=== PATIENT | male | born 1935 | race Caucasian/White ===

== ENCOUNTER 2016-06-18 11:42 | Emergency (ER) | payer MEDICARE, OTHER ==
--- NOTE | 2016-06-18 12:07 | ER Document Report ---
ED Medical Screen (RME) - General Stated Complaint: PAIN IN UMBILICA AREA Mode of Arrival: Wheelchair Information source: Patient Notes: Patient complains of umbilical hernia these no longer able to reduce. Patient states pain radiates around into his abdomen. Patient does report nausea, no vomiting. No fever I have greeted and performed a rapid initial assessment of this patient. A comprehensive ED assessment and evaluation of the patient, analysis of test results and completion of the medical decision making process will be conducted by additional ED providers. TRAVEL OUTSIDE OF THE [place] IN LAST 30 DAYS: No - Related Data Allergies/Adverse Reactions: Sulfa (Sulfonamide Antibiotics) Allergy (Severe, Verified 06/18/16 12:04) flu-like symptoms Past Medical History - Past Medical History Cardiac Medical History: Reports: Hx Coronary Artery Disease, Hx Heart Attack - mild heart attack in past, Hx Hypertension - on meds Pulmonary Medical History: Reports: Hx COPD - inhalers Denies: Hx Asthma, Hx Bronchitis, Hx Pneumonia, Hx Tuberculosis Neurological Medical History: Denies: Hx Cerebrovascular Accident, Hx Seizures Endocrine Medical History: Reports: Hx Hypothyroidism Renal/ Medical History: Reports: Hx Benign Prostatic Hyperplasia GI Medical History: Reports: Hx Gastroesophageal Reflux Disease. Denies: Hx Hepatitis, Hx Hiatal Hernia, Hx Ulcer Musculoskeltal Medical History: Reports Hx Arthritis Psychiatric Medical History: Reports: Hx Depression Infectious Medical History: Denies: Hx Hepatitis Past Surgical History: Reports: Hx Herniorrhaphy. Denies: Hx Open Heart Surgery , Hx Pacemaker - Immunizations Hx Diphtheria, Pertussis, Tetanus Vaccination: Yes Physical Exam - Vital signs Vitals: Temp Pulse Resp BP Pulse Ox 98.3 F 60 14 137/94 H 95 06/18/16 11:47 06/18/16 11:47 06/18/16 11:47 06/18/16 11:47 06/18/16 11:47 - Abdominal Tenderness: Tender - Umbilical hernia Course - Vital Signs Vital signs: Temp Pulse Resp BP Pulse Ox 98.3 F 60 14 137/94 H 95 06/18/16 11:47 06/18/16 11:47 06/18/16 11:47 06/18/16 11:47 06/18/16 11:47
[2016-06-18 12:53] LABS: ABSOLUTE BASOPHILS # (AUTO) 0.1 10^3/uL (0.0-0.2); ABSOLUTE EOSINOPHILS # (AUTO) 0.3 10^3/uL (0.0-0.6); ABSOLUTE LYMPHOCYTES (AUTO) 1.4 10^3/uL (0.5-4.7); ABSOLUTE MONOCYTES (AUTO) 0.8 10^3/uL (0.1-1.4); ABSOLUTE NEUT (AUTO) 7.9 10^3/uL (1.7-8.2); BASOPHILS % (AUTO) 0.7 % (0-2); EOSINOPHILS % (AUTO) 2.8 % (0-6); HEMATOCRIT 37.3 % (37.9-51.0); HEMOGLOBIN 12.5 g/dL (13.5-17.0); HGB HCT DIFFERENCE 0.2; LYMPHOCYTES % (AUTO) 13.2 % (13-45); MEAN CORPUSCULAR HEMOGLOBIN 32.4 pg (27.0-33.4); MEAN CORPUSCULAR HGB CONC 33.4 g/dL (32.0-36.0); MEAN CORPUSCULAR VOLUME 97 fl (80-97); MONOCYTES % (AUTO) 7.7 % (3-13); RED BLOOD COUNT 3.84 10^6/uL (4.35-5.55); SEGMENTED NEUTROPHILS % (AUTO) 75.6 % (42-78); WHITE BLOOD COUNT 10.4 10^3/uL (4.0-10.5)
[2016-06-18 12:58] LABS: APPEARANCE,URINE SLIGHTLY-CLOUDY; BILIRUBIN,URINE NEGATIVE (NEGATIVE); GLUCOSE, URINE NEGATIVE (NEGATIVE); KETONES,URINE NEGATIVE (NEGATIVE); LEUKOCYTE ESTERASE,URINE SMALL (NEGATIVE); NITRITE,URINE NEGATIVE (NEGATIVE); PROTEIN,URINE NEGATIVE (NEGATIVE); URINE SPECIFIC GRAVITY 1.012; UROBILINOGEN,URINE NEGATIVE mg/dL (<2.0)
[2016-06-18 13:15] LABS: ALANINE AMINOTRANSFERASE 24 U/L (21-72); ALBUMIN 3.7 g/dL (3.5-5.0); ALKALINE PHOSPHATASE 75 U/L (38-126); ANION GAP 7 (5-19); ASPARTATE AMINO TRANSFERASE 20 U/L (17-59); BILIRUBIN,TOTAL 0.5 mg/dL (0.2-1.3); BLOOD UREA NITROGEN 31 mg/dL (7-20); CALCIUM 9.9 mg/dL (8.4-10.2); CARBON DIOXIDE 25 mmol/L (22-30); CHLORIDE 99 mmol/L (98-107); CREATININE RESULT 1.98 mg/dL (0.52-1.25); GLUCOSE 107 mg/dL (75-110); LIPASE 121.4 U/L (23-300); POTASSIUM 5.6 mmol/L (3.6-5.0); SODIUM 130.9 mmol/L (137-145); TOTAL PROTEIN 6.9 g/dL (6.3-8.2)
[2016-06-18] MEDS ORDERED: FENTANYL CITRATE INJ/PF 100 MCG/2 ML AMPUL IV ONE (14:11)
[2016-06-18] MEDS ORDERED: ONDANSETRON HCL INJ/PF 4 MG/2 ML SDV IV ONE (14:12)
--- NOTE | 2016-06-18 14:13 | ER Document Report ---
ED General - General Chief Complaint: Abdominal Pain Stated Complaint: PAIN IN UMBILICA AREA Mode of Arrival: Wheelchair TRAVEL OUTSIDE OF THE [place] IN LAST 30 DAYS: No - Related Data Allergies/Adverse Reactions: Sulfa (Sulfonamide Antibiotics) Allergy (Severe, Verified 06/18/16 12:04) flu-like symptoms Home Medications: Current Home Medications Aclidinium [place] [Tudorza Pressair] 1 puff IH Q12 06/18/16 [History] Albuterol Sulfate [Proair HFA] 2 puff IH Q6HP PRN 06/18/16 [History] Colestipol HCl [Colestid 1 gm Tablet] 1 gm PO BID 06/18/16 [History] Esomeprazole Magnesium [Nexium] 40 mg PO DAILY 06/18/16 [History] Fluticasone Propionate [Flonase Nasal [place] 50 Mcg/[place] 16 gm] 2 spray NASL DAILY 06/18/16 [History] Fluticasone/Salmeterol [Advair HFA 115-21 mcg Inhaler] 1 puff IH Q12 06/18/16 [ History] Levothyroxine Sodium [Synthroid 0.112 mg Tablet] 112 mcg PO DAILY 06/18/16 [ History] Lisinopril [Zestril] 10 mg PO DAILY 06/18/16 [History] Lorazepam [Ativan 1 mg Tablet] 1 mg PO Q12HP PRN 06/18/16 [History] Methylcellulose (with Sugar) [Fiber Therapy Powder] 1 dose PO TID 06/18/16 [ History] Metoprolol Succinate [Toprol Xl 50 mg Tab.sr] 50 mg PO DAILY 06/18/16 [History] Tamsulosin HCl [Flomax 0.4 mg Cap.sr] 0.4 mg PO DAILY 06/18/16 [History] Past Medical History - General Information source: Patient - Social History Smoking Status: Never Smoker Family History: Reviewed & Not Pertinent Patient has suicidal ideation: No Patient has homicidal ideation: No - Past Medical History Cardiac Medical History: Reports: Hx Coronary Artery Disease, Hx Heart Attack - mild heart attack in past, Hx Hypertension - on meds Pulmonary Medical History: Reports: Hx COPD - inhalers Denies: Hx Asthma, Hx Bronchitis, Hx Pneumonia, Hx Tuberculosis Neurological Medical History: Denies: Hx Cerebrovascular Accident, Hx Seizures Endocrine Medical History: Reports: Hx Hypothyroidism Renal/ Medical History: Reports: Hx Benign Prostatic Hyperplasia. Denies: Hx Peritoneal Dialysis GI Medical History: Reports: Hx Gastroesophageal Reflux Disease. Denies: Hx Hepatitis, Hx Hiatal Hernia, Hx Ulcer Musculoskeltal Medical History: Reports Hx Arthritis Psychiatric Medical History: Reports: Hx Depression Infectious Medical History: Denies: Hx Hepatitis Past Surgical History: Reports: Hx Herniorrhaphy. Denies: Hx Open Heart Surgery , Hx Pacemaker - Immunizations Hx Diphtheria, Pertussis, Tetanus Vaccination: Yes Hx Pneumococcal Vaccination: 04/28/07 Physical Exam - Vital signs Vitals: Temp Pulse Resp BP Pulse Ox 98.3 F 60 14 137/94 H 95 06/18/16 11:47 06/18/16 11:47 06/18/16 11:47 06/18/16 11:47 06/18/16 11:47 Course - Re-evaluation Re-evalutation: 06/18/16 14:13 I picked up the chart at 1400 immediately assessed patient and call Dr. Paniagua at [address] scan to come to the ED and evaluate the patient IV is started with fentanyl and Zofran. 06/18/16 17:02 Dr. Hidalgo came to see the patient had a long discussion with patient and family and the patient's primary care physician. He is able to reduce the hernia at the bedside but does not know how long that has gone last. According to his discussion with the primary care physician the patient is a poor candidate for surgery and has not been worked up preoperatively. The surgeon had a long detailed conversation about this with the patient and the family member at the bedside right now it is reduced the family doctor says he'll see him in follow- up I recommended one to 2 days. It will ultimately need to be fixed but right now is reducible. Patient is instructed to return to the emergency department immediately for persistent pain vomiting or any other concerns by the above treatment - Vital Signs Vital signs: Temp Pulse Resp BP Pulse Ox 98.3 F 65 14 127/64 H 95 06/18/16 17:14 06/18/16 17:14 06/18/16 11:47 06/18/16 17:14 06/18/16 17:14 - Laboratory Result Diagrams: 06/18/16 12:15 06/18/16 12:15 Laboratory results interpreted by me: 0206/18/16 06/18/16 12:15 12:15 12:15 RBC 3.84 L Hgb 12.5 L Hct 37.3 L Sodium 130.9 L Potassium 5.6 H BUN 31 H Creatinine 1.98 H Est GFR ( Amer) 40 L Est GFR (Non-Af Amer) 33 L Ur Leukocyte Esterase SMALL H Discharge - Discharge Clinical Impression: reducible umbilical hernia Condition: Stable Disposition: HOME, SELF-CARE Instructions: Abdominal Pain ([facility]) Additional Instructions: Hernia You have a hernia. A hernia forms at a weak spot in the abdominal wall. Bowel slips out of the abdominal cavity into the weak spot. Hernias tend to occur in the groin (especially in males), the fold of the thigh, the naval, or at a surgical scar. Surgical repair of the defect is usually necessary. The problem tends to get worse. It's important that you follow up as recommended. For now, you should avoid straining, heavy lifting, and vigorous exercise. Complications occur if the hernia becomes tightly stuck. You should come back immediately if the area becomes increasingly painful, swollen, or discolored, or if you develop abdominal pain and vomiting. Referrals: MAGNUS BARTON MD [Primary Care Provider] - Follow up tomorrow (in 1 to 2 days return for increasing worsening or new symptoms)
[2016-06-18 17:19] VITALS: BP 127/64
--- NOTE | 2016-06-19 09:51 | PDOC CONSULTATION ---
History of Present Illness Admission Date/PCP: MAGNUS DALTON MD History of Present Illness: APRIL VELAZQUEZ is a 81 year old white male, awoke this morning with abdominal pain at 4 AM. Patient reports that these had 2 hernias in his midabdomen, 1 at the umbilicus and one a little above that. The one at the umbilicus was fixed last year, 01/03/2016. He reports at that time he was told he was a very high surgical risk and could not undergo general anesthesia. The repair was done with spinal anesthesia. It was done as a primary repair. The operative note reports that only limited undermining could be done due to patient motion and discomfort. The patient reports the upper hernia sticks out but he can usually reduce it. However this morning, he was unable to reduce it. The pain caused by it was mid abdominal and radiated out to both sides. The pain was severe earlier. Pain is moderate now, but becomes severe when palpated. He denies obstructive symptoms. Has baseline bowel habits include chronic diarrhea and fecal urgency due to irritable bowel syndrome which have not changed recently. He reports some mild confusion and mild memory deficits, chronic diarrhea, chronic shortness of breath, chronic tremor, cough and chronic leg weakness. He denies fevers, chills, nausea, vomiting, constipation, chest pain, seizures, shakes, chills, lightheadedness, dizziness, double vision, rash, jaundice, itching. Past Medical History Cardiac Medical History: Reports: Coronary Artery Disease, Myocardial Infarction - mild heart attack in past, Hyperlipidema, Hypertension - on meds, Other - Aortic stenosis Pulmonary Medical History: Reports: Chronic Obstructive Pulmonary Disease (COPD ) - on 3 inhalers, Other - Emphysema Neurological Medical History: Reports: Other - Peripheral neuropathy, Tremor Endocrine Medical History: Reports: Hypothyroidism Renal/ Medical History: Reports: Chronic Kidney Disease - Stage IV, Other - DPH GI Medical History: Reports: Gastroesophageal Reflux Disease, Other - Diverticulosis, irritable bowel syndrome Musculoskeltal Medical History: Reports: Arthritis, Other - Cervical spondylosis , compression fracture of the lumbar vertebrae Psychiatric Medical History: Reports: Depression Hematology: Reports: Anemia Past Surgical History Past Surgical History: Reports: Herniorrhaphy, Orthopedic Surgery - Right shoulder surgery, Other - TURP, soft tissue mass removed from his back Social History Information Source: Patient Lives with: Alone Smoking Status: Former Smoker Number of Years Smokin Last Time Smoked: 2 years ago Frequency of Alcohol Use: Social Amount of Alcoholic Beverages Per Day: 2-3 Hx Recreational Drug Use: No Hx Prescription Drug Abuse: No Family History Family History: Reviewed & Not Pertinent Parental Family History Reviewed: Yes Children Family History Reviewed: Yes Sibling(s) Family History Reviewed.: Yes Medication/Allergy Home Medications: Aclidinium [place] [Tudorza Pressair] 1 puff IH Q12 06/18/16 Albuterol Sulfate [Proair HFA] 2 puff IH Q6HP PRN 06/18/16 Colestipol HCl [Colestid 1 gm Tablet] 1 gm PO BID 06/18/16 Esomeprazole Magnesium [Nexium] 40 mg PO DAILY 06/18/16 Fluticasone Propionate [Flonase Nasal [place] 50 Mcg/[place] 16 gm] 2 spray NASL DAILY 06/18/16 Fluticasone/Salmeterol [Advair HFA 115-21 mcg Inhaler] 1 puff IH Q12 06/18/16 Levothyroxine Sodium [Synthroid 0.112 mg Tablet] 112 mcg PO DAILY 06/18/16 Lisinopril [Zestril] 10 mg PO DAILY 06/18/16 Lorazepam [Ativan 1 mg Tablet] 1 mg PO Q12HP PRN 06/18/16 Methylcellulose (with Sugar) [Fiber Therapy Powder] 1 dose PO TID 06/18/16 Metoprolol Succinate [Toprol Xl 50 mg Tab.sr] 50 mg PO DAILY 06/18/16 Tamsulosin HCl [Flomax 0.4 mg Cap.sr] 0.4 mg PO DAILY 06/18/16 Allergies/Adverse Reactions: Sulfa (Sulfonamide Antibiotics) Allergy (Severe, Verified 06/18/16 12:04) flu-like symptoms Review of Systems All systems: reviewed and no additional remarkable complaints except as stated Physical Exam Vital Signs: Temp Pulse Resp BP Pulse Ox 98.3 F 65 14 127/64 H 95 06/18/16 17:14 06/18/16 17:14 06/18/16 11:47 06/18/16 17:14 06/18/16 17:14 Intake & Output 06/17/16 06/18/16 06/19/16 06:59 06:59 06:59 Weight 79.5 kg General appearance: PRESENT: no acute distress Head exam: PRESENT: normocephalic Eye exam: PRESENT: EOMI Mouth exam: PRESENT: moist, tongue midline Neck exam: ABSENT: JVD, lymphadenopathy, tenderness, thyromegaly Respiratory exam: PRESENT: decreased breath sounds - Decreased clear bilaterally Cardiovascular exam: PRESENT: other - Unable to auscultate, seems regular at the wrist GI/Abdominal exam: PRESENT: hernia, soft, tenderness - Patient had bowel through a hernia approximately 3 cm above the umbilicus. This was reduced and the patient was subsequently watched. When the patient would cough or stand, some of the bowel would escape back through the hernia defect, but not the equal volume as when the patient was first encountered. When the bowel was reduced and the patient was watched for 30 minutes, the patient had no abdominal pain or tenderness to palpation. When the bowel did slip back through , it was much more easily reduced subsequently. No changes or ischemia to the overlying skin., other - No groin hernia.. ABSENT: distended, firm, guarding, rebound, rigid Extremities exam: ABSENT: pedal edema, tenderness Musculoskeletal exam: PRESENT: ambulatory Neurological exam: PRESENT: alert, oriented to person, oriented to place, oriented to time, oriented to situation, other - Some mild memory deficits Psychiatric exam: PRESENT: appropriate affect, normal mood Skin exam: ABSENT: jaundice, rash Results Laboratory Results: 06/18/16 12:15 06/18/16 12:15 06/18/16 06/18/16 06/18/16 12:15 12:15 12:15 WBC 10.4 RBC 3.84 L Hgb 12.5 L Hct 37.3 L MCV 97 MCH 32.4 MCHC 33.4 RDW 14.0 Plt Count 301 Seg Neutrophils % 75.6 Lymphocytes % 13.2 Monocytes % 7.7 Eosinophils % 2.8 Basophils % 0.7 Absolute Neutrophils 7.9 Absolute Lymphocytes 1.4 Absolute Monocytes 0.8 Absolute Eosinophils 0.3 Absolute Basophils 0.1 Sodium 130.9 L Potassium 5.6 H Chloride 99 Carbon Dioxide 25 Anion Gap 7 BUN 31 H Creatinine 1.98 H Est GFR ( Amer) 40 L Est GFR (Non-Af Amer) 33 L Glucose 107 Calcium 9.9 Total Bilirubin 0.5 AST 20 ALT 24 Alkaline Phosphatase 75 Total Protein 6.9 Albumin 3.7 Lipase 121.4 Urine Color YELLOW Urine Appearance SLIGHTLY-CLOUDY Urine pH 5.0 Ur Specific [place] 1.012 Urine Protein NEGATIVE Urine Glucose (UA) NEGATIVE Urine Ketones NEGATIVE Urine Blood NEGATIVE Urine Nitrite NEGATIVE Ur Leukocyte Esterase SMALL H Urine WBC (Auto) 3 Urine RBC (Auto) 1 Assessment & Plan - Diagnosis (1) Ventral hernia without obstruction or gangrene Is this a current diagnosis for this admission?: YesPlan: April Callahan is an 81-year-old white male who had a known ventral hernia which previously was always reducible by himself. This morning he had more volume in the hernia defect and the hernia was not reducible and causes him greater pain. He presented to the hospital. I was able to reduce the hernia and watched him for no less than 30 minutes afterwards. His pain resolved. His labs are normal. His vitals are normal. He does not have signs of obstruction nor strangulation. His hernia is likely to recur and possibly cause him trouble in the future. We discussed whether or not repair should be undertaken. He has an exhaustive list of comorbidities, several of which are very serious including COPD and emphysema from 60 years of smoking, previous heart attack, aortic stenosis, chronic kidney disease stage IV and early dementia. All these are high risk for poor surgical outcome. In addition he has multiple other comorbidities. He has had a general decline over the last 5- 7 years, since his and since an episode of double and triple vision which lasted 5 months. He is minimally active. I spoke with anesthesia Dr. Amaya, the patient's primary care provider Dr. Magnus Dalton, and Dr. Ott, who performed his umbilical hernia repair in December. The umbilical hernia repair was done under spinal and was suboptimal and was limited by the patient' s discomfort and motion. This hernia defect is more cephalad than that one and anesthesia control will be even less. It is unlikely an adequate repair could be done unless the patient under general. Dr. Dalton has serious concerns about the patient undergoing general anesthesia and has advised that repair be performed only under emergency situation such as strangulation or obstruction. Dr. Ott has recommended conservative management if possible, and if surgery is necessary due to strangulation, which strongly consider transfer to tertiary care center. Anesthesia has recommended transfer if operative intervention is warranted. I agree that surgery should only be undertaken if necessary. The hernia is now easily reducible and the patient's pain has resolved. I have fashioned a truss out of an abdominal binder and taped up gauze pack. The patient and his daughter are comfortable with this plan. They understand that the last echocardiogram to classify his aortic stenosis was done 10 years ago and his last stress test was done 4 years ago. I recommend he have all preoperative studies and optimization done in case the hernia does become strangulated and he would need emergent surgery. Furthermore, if they suspect strangulation, I recommended they present to a tertiary care center with 24/7 nephrology, cardiology, pulmonology, critical care services available.
== END 2016-06-18 17:19 | disposition home or self-care (01) ==
LOC: ER 11:42
DX: K42.9 Umbilical hernia without obstruction or gangrene (principal); R10.33 Periumbilical pain; I25.10 Atherosclerotic heart disease of native coronary artery without angina pectoris; I25.2 Old myocardial infarction; I10 Essential (primary) hypertension; J44.9 Chronic obstructive pulmonary disease, unspecified; Z88.2 Allergy status to sulfonamides
CPT/HCPCS: 99284; 96374; 96375; 36415; 83690; 85025; 80053; 81001; J3010; J2405

== ENCOUNTER 2016-08-14 17:24 | Emergency (ER) | payer MEDICARE, OTHER ==
--- NOTE | 2016-08-14 20:00 | ER Document Report ---
ED Medical Screen (RME) - General Chief Complaint: Abdominal Pain Stated Complaint: ABDOMINAL PAIN Notes: Patient had surgery on the anterior abdominal wall hernia last fall,? January. Because of his condition, they apparently were not able to completely repair the hernia and he is left with some residual opening in the abdominal wall which periodically gets entrapped bowel, but it's apparently reducible. He is here for the same reason tonight. At this time, he says the hernia feels back to normal and is painless. TRAVEL OUTSIDE OF THE [place] IN LAST 30 DAYS: No - Related Data Allergies/Adverse Reactions: Sulfa (Sulfonamide Antibiotics) Allergy (Severe, Verified 08/14/16 18:30) flu-like symptoms Past Medical History - Past Medical History Cardiac Medical History: Reports: Hx Coronary Artery Disease, Hx Heart Attack - mild heart attack in past, Hx Hypercholesterolemia, Hx Hypertension - on meds Pulmonary Medical History: Reports: Hx COPD - inhalers Denies: Hx Asthma, Hx Bronchitis, Hx Pneumonia, Hx Tuberculosis Neurological Medical History: Denies: Hx Cerebrovascular Accident, Hx Seizures Endocrine Medical History: Reports: Hx Hypothyroidism Renal/ Medical History: Reports: Hx Benign Prostatic Hyperplasia. Denies: Hx Peritoneal Dialysis GI Medical History: Reports: Hx Gastroesophageal Reflux Disease. Denies: Hx Hepatitis, Hx Hiatal Hernia, Hx Ulcer Musculoskeltal Medical History: Reports Hx Arthritis Psychiatric Medical History: Reports: Hx Depression Infectious Medical History: Denies: Hx Hepatitis Past Surgical History: Reports: Hx Herniorrhaphy, Hx Orthopedic Surgery - Right shoulder surgery, Other - TURP, soft tissue mass removed from his back. Denies : Hx Open Heart Surgery, Hx Pacemaker - Immunizations Hx Diphtheria, Pertussis, Tetanus Vaccination: Yes Physical Exam - Vital signs Vitals: Temp Pulse Resp BP Pulse Ox 98.0 F 71 20 158/95 H 95 08/14/16 18:33 08/14/16 18:33 08/14/16 18:33 08/14/16 18:33 08/14/16 18:33 Course - Vital Signs Vital signs: Temp Pulse Resp BP Pulse Ox 98.0 F 71 20 158/95 H 95 08/14/16 18:33 08/14/16 18:33 08/14/16 18:33 08/14/16 18:33 08/14/16 18:33
[2016-08-15] MEDS ORDERED: NORMAL SALINE 500 ML IV ONE (00:10)
--- NOTE | 2016-08-15 00:23 | ER Document Report ---
ED General - General Chief Complaint: Abdominal Pain Stated Complaint: ABDOMINAL PAIN Mode of Arrival: Ambulatory Information source: Patient Notes: This is an 81-year-old male with multiple medical problems including recurrent abdominal pain from a ventral hernia who presents with an episode of abdominal pain near the hernia today. He states that about 11:00 today he developed significant pain to his hernia and was unable to reduce the hernia. He actually had pain for about 5 hours. Upon arrival to the emergency department however the pain had resolved and he currently feels much better. He denies any nausea or vomiting. He has had no fevers. Bowel movements have been normal. TRAVEL OUTSIDE OF THE [place] IN LAST 30 DAYS: No - Related Data Allergies/Adverse Reactions: Sulfa (Sulfonamide Antibiotics) Allergy (Severe, Verified 08/14/16 18:30) flu-like symptoms Past Medical History - Social History Smoking Status: Unknown if Ever Smoked Family History: Reviewed & Not Pertinent Patient has suicidal ideation: No Patient has homicidal ideation: No - Past Medical History Cardiac Medical History: Reports: Hx Coronary Artery Disease, Hx Heart Attack - mild heart attack in past, Hx Hypercholesterolemia, Hx Hypertension - on meds Pulmonary Medical History: Reports: Hx COPD - inhalers Denies: Hx Asthma, Hx Bronchitis, Hx Pneumonia, Hx Tuberculosis Neurological Medical History: Denies: Hx Cerebrovascular Accident, Hx Seizures Endocrine Medical History: Reports: Hx Hypothyroidism Renal/ Medical History: Reports: Hx Benign Prostatic Hyperplasia. Denies: Hx Peritoneal Dialysis GI Medical History: Reports: Hx Gastroesophageal Reflux Disease. Denies: Hx Hepatitis, Hx Hiatal Hernia, Hx Ulcer Musculoskeltal Medical History: Reports Hx Arthritis Psychiatric Medical History: Reports: Hx Depression Infectious Medical History: Denies: Hx Hepatitis Past Surgical History: Reports: Hx Herniorrhaphy, Hx Orthopedic Surgery - Right shoulder surgery, Other - TURP, soft tissue mass removed from his back. Denies : Hx Open Heart Surgery, Hx Pacemaker - Immunizations Hx Diphtheria, Pertussis, Tetanus Vaccination: Yes Hx Pneumococcal Vaccination: 04/28/07 Review of Systems - Review of Systems Notes: REVIEW OF SYSTEMS: CONSTITUTIONAL : Denies fever, chills, or sweats. Denies recent illness. EENT: Denies eye, ear, throat, or mouth pain or symptoms. Denies nasal or sinus congestion. CARDIOVASCULAR: Denies chest pain. RESPIRATORY: Denies cough, cold, or chest congestion. Denies shortness of breath, difficulty breathing, or wheezing. GASTROINTESTINAL: As per history of present illness: GENITOURINARY: Denies difficulty urinating, painful urination MUSCULOSKELETAL: Denies neck or back pain or joint pain or swelling. SKIN: Denies rash or skin lesions. HEMATOLOGIC : Denies easy bruising or bleeding. LYMPHATIC: Denies swollen, enlarged glands. NEUROLOGICAL: Denies altered mental status or loss of consciousness. Denies headache. PSYCHIATRIC: Denies anxiety or stress or depression. ALL OTHER SYSTEMS REVIEWED AND NEGATIVE. Physical Exam - Vital signs Vitals: Temp Pulse Resp BP Pulse Ox 98.0 F 71 20 158/95 H 95 08/14/16 18:33 08/14/16 18:33 08/14/16 18:33 08/14/16 18:33 08/14/16 18:33 - Notes Notes: PHYSICAL EXAMINATION: GENERAL: Well-appearing, well-nourished and in no acute distress, pleasant and conversant HEAD: Atraumatic, normocephalic. EYES: Pupils equal round and reactive to light, extraocular movements intact, sclera anicteric, conjunctiva are normal. ENT: nares patent, oropharynx clear without exudates. Moist mucous membranes. NECK: Normal range of motion, supple without lymphadenopathy LUNGS: Breath sounds clear to auscultation bilaterally and equal. No wheezes rales or rhonchi. HEART: Regular rate and rhythm without murmurs ABDOMEN: Soft,normoactive bowel sounds. Moderate TTP just above umbilicus where reducible hernia is palpable. No guarding, no rebound. No masses appreciated. EXTREMITIES: Normal range of motion, no pitting or edema. No cyanosis. NEUROLOGICAL: Cranial nerves grossly intact. No gross focal motor or sensory deficits appreciated PSYCH: Normal mood, normal affect. SKIN: Warm, Dry, normal turgor, no rashes or lesions noted. Course - Re-evaluation Re-evalutation: 08/15/16 00:18 Chart review reveals surgical consult done on June 18 of this year. At that time patient presented with similar episode of ventral hernia pain, and hernia was reduced in the ER. At that time, it was determined that patient was a high risk patient for elective surgery and that surgical repair of this hernia would only be undertaken in event of emergency such as strangulation. In that event, it was recommended that pt be transferred to a tertiary care center for surgical repair given his multiple comorbidities. - Vital Signs Vital signs: Temp Pulse Resp BP Pulse Ox 98.6 F 68 16 136/88 H 96 08/15/16 02:45 08/15/16 02:45 08/15/16 02:45 08/15/16 02:45 08/15/16 02:45 - Laboratory Result Diagrams: 08/15/16 00:37 08/15/16 00:37 Laboratory results interpreted by me: 08/15/16 08/15/16 00:37 00:37 RBC 3.86 L Hgb 12.1 L Hct 36.2 L RDW 14.2 H BUN 25 H Creatinine 1.56 H Est GFR ( Amer) 52 L Est GFR (Non-Af Amer) 43 L - Diagnostic Test Radiology reviewed: Reports reviewed Discharge - Discharge Clinical Impression: Abdominal pain Qualifiers: Abdominal location: unspecified location Qualified Code(s): R10.9 - Unspecified abdominal pain Ventral hernia Qualifiers: Obstruction and gangrene presence: without obstruction or gangrene Qualified Code(s): K43.9 - Ventral hernia without obstruction or gangrene Condition: Stable Disposition: HOME, SELF-CARE Additional Instructions: ABDOMINAL PAIN: There are many causes of abdominal pain. Pain can mean a serious problem requiring surgery (such as appendicitis). It can also be an innocent problem that goes away on its own (such as a viral infection). Often, time must pass to determine the cause of pain. The physician does not feel that hospitalization is necessary, at present. Things may change within the next 24 hours. Call the doctor or come back for re- examination if any problems occur, such as: (1) Pain that becomes more severe, steady, or becomes concentrated in one specific area. Also, pain that is more severe with movement or coughing. (2) Vomiting that persists or becomes more frequent. (3) Blood in the vomitus, urine, or bowel movements. Blood in the stool may have a tarry or black appearance. (4) Shaking chills or fever greater than 100 degrees F. (5) The abdomen becomes more distended or swollen. (6) Bowel movements cease. (7) Failure to improve as expected. NORMAL EXAM AND WORKUP: At this time, your examination and workup show no significant abnormality. No significant abnormal physical findings are noted. All laboratory, EKG, and imaging (x-ray, CT scans, ultrasound) studies that were ordered show no significant abnormality. Although your examination and all studies that were ordered showed no significant abnormal finding, there are no examinations and no studies that are 100% accurate. There is always the possibility that some abnormality could exist and not be detected with physical examination or within the limits and capabilities of laboratory and other studies. You should return or follow up as you were instructed on your visit today for further evaluation if your symptoms do not resolve. Hernia You have a hernia. A hernia forms at a weak spot in the abdominal wall. Bowel slips out of the abdominal cavity into the weak spot. Hernias tend to occur in the groin (especially in males), the fold of the thigh, the naval, or at a surgical scar. Surgical repair of the defect is usually necessary. The problem tends to get worse. It's important that you follow up as recommended. For now, you should avoid straining, heavy lifting, and vigorous exercise. Complications occur if the hernia becomes tightly stuck. You should come back immediately if the area becomes increasingly painful, swollen, or discolored, or if you develop abdominal pain and vomiting. FOLLOW-UP CARE: If you have been referred to a physician for follow-up care, call the physician s office for an appointment as you were instructed or within the next two days. If you experience worsening or a significant change in your symptoms, notify the physician immediately or return to the Emergency Department at any time for re-evaluation. As discussed, please follow up with your PCP for surgical referral at a tertiary care center for definitive care of your ventral hernia. Return to the ER for severe pain, fever, persistant vomiting, or other worsening symptoms or concerns.
[2016-08-15 00:52] LABS: ABSOLUTE BASOPHILS # (AUTO) 0.1 10^3/uL (0.0-0.2); ABSOLUTE EOSINOPHILS # (AUTO) 0.1 10^3/uL (0.0-0.6); ABSOLUTE LYMPHOCYTES (AUTO) 2.2 10^3/uL (0.5-4.7); ABSOLUTE MONOCYTES (AUTO) 0.7 10^3/uL (0.1-1.4); ABSOLUTE NEUT (AUTO) 4.2 10^3/uL (1.7-8.2); BASOPHILS % (AUTO) 1.2 % (0-2); EOSINOPHILS % (AUTO) 1.2 % (0-6); HEMATOCRIT 36.2 % (37.9-51.0); HEMOGLOBIN 12.1 g/dL (13.5-17.0); HGB HCT DIFFERENCE 0.1; LYMPHOCYTES % (AUTO) 30.3 % (13-45); MEAN CORPUSCULAR HEMOGLOBIN 31.3 pg (27.0-33.4); MEAN CORPUSCULAR HGB CONC 33.4 g/dL (32.0-36.0); MEAN CORPUSCULAR VOLUME 94 fl (80-97); MONOCYTES % (AUTO) 10.1 % (3-13); RED BLOOD COUNT 3.86 10^6/uL (4.35-5.55); RED CELL DISTRIBUTION WIDTH 14.2 % (11.5-14.0); SEGMENTED NEUTROPHILS % (AUTO) 57.2 % (42-78); WHITE BLOOD COUNT 7.3 10^3/uL (4.0-10.5)
[2016-08-15 01:10] LABS: ALANINE AMINOTRANSFERASE 23 U/L (21-72); ALKALINE PHOSPHATASE 68 U/L (38-126); ANION GAP 14 (5-19); ASPARTATE AMINO TRANSFERASE 22 U/L (17-59); BILIRUBIN,DIRECT 0.4 mg/dL (0.0-0.4); BILIRUBIN,TOTAL 0.7 mg/dL (0.2-1.3); BLOOD UREA NITROGEN 25 mg/dL (7-20); CALCIUM 9.7 mg/dL (8.4-10.2); CARBON DIOXIDE 24 mmol/L (22-30); CHLORIDE 104 mmol/L (98-107); CREATININE RESULT 1.56 mg/dL (0.52-1.25); GLUCOSE 91 mg/dL (75-110); LIPASE 119.9 U/L (23-300); POTASSIUM 4.9 mmol/L (3.6-5.0); SODIUM 142.4 mmol/L (137-145); TOTAL PROTEIN 6.7 g/dL (6.3-8.2)
[2016-08-15 02:49] VITALS: BP 136/88
== END 2016-08-15 02:45 | disposition home or self-care (01) ==
LOC: ER 17:24
DX: K43.9 Ventral hernia without obstruction or gangrene (principal); R10.9 Unspecified abdominal pain
CPT/HCPCS: 99284; 96360; 36415; 83690; 85025; 80053; 83605; 76705; 74176; J7040